=== PATIENT | male | born 1980 | race Asian ===

== ENCOUNTER 2022-09-23 16:13 | Emergency (ER) | payer BC ==
[~2022-09-23] VITALS: Ht 167.6 cm; Wt 90.7 kg
[2022-09-23] MEDS ORDERED: MORPHINE 4 MG INJ. 4 MG/ML VIAL IM ONE ×2 (18:15→22:15)
--- NOTE | 2022-09-23 18:30 | NUR ---
with patient for MSE.
[2022-09-23 19:21] VITALS: BP_SYST 145
--- NOTE | 2022-09-23 21:50 | NUR ---
PT FROM HOME WITH C/O LOWER TO MID BAKC PAIN. PT REPORT HAVING MECHANICAL FALL ONE YEAR AGO AND NOW IS EXPERIENCING BACK PAIN. A&O X4, AND FOLLOWING COMMANDS.
[2022-09-23] MEDS ORDERED: LIDO1ADH71 TD (21:51)
[2022-09-23] MEDS ORDERED: CYCLOBENZAPRINE HCL 10 MG TABLET (FLEXERIL) PO ONE (22:00)
[2022-09-23] MEDS ORDERED: MORPHINE 4 MG INJ. 4 MG/ML VIAL ONE (22:06)
[2022-09-23 22:40] VITALS: BP_SYST 134
--- NOTE | 2022-09-23 22:40 | NUR ---
Patient given written and verbal discharge instructions and verbalizes understanding. ER DR. SAEZ discussed with patient the results and treatment provided. Patient in stable condition. ID arm band removed. Rx of LIDOCAINE given. Patient educated on pain management and to follow up with PMD. Pain Scale 3. Opportunity for questions provided and answered. Medication side effect fact sheet provided.
== END 2022-09-23 22:40 | disposition home or self-care (01) ==
LOC: SED 16:13
DX: S39.012A Strain of muscle, fascia and tendon of lower back, initial encounter (principal); Z88.1 Allergy status to other antibiotic agents; Z88.5 Allergy status to narcotic agent; Z88.6 Allergy status to analgesic agent; Z79.899 Other long term (current) drug therapy; W01.0XXA Fall on same level from slipping, tripping and stumbling without subsequent striking against object, initial encounter; Y93.89 Activity, other specified; Y92.89 Other specified places as the place of occurrence of the external cause; Y99.8 Other external cause status
CPT/HCPCS: 99283; 96372; J2270